=== PATIENT | male | born 1950 | race Caucasian/White ===

== ENCOUNTER 2019-09-22 10:49 | Emergency (ER) | payer MEDICARE, SELFPAY ==
--- NOTE | 2019-09-22 10:51 | ED.URI ---
HPI - URI/Sore Throat General Chief Complaint: Upper Respiratory Infection Stated Complaint: Sore Throat Time Seen by Provider: 09/22/19 10:51 Source: patient and RN notes reviewed History of Present Illness HPI Narrative: Patient is a 69-year-old male that presents the urgent care with complaints of postnasal drainage, sore throat, runny nose, productive cough. Patient states that it started 3 days ago and he wants to make sure he does not have strep or a sinus infection . Patient denies any known fever, shortness of breath. States that he did see his PCP and was denied an antibiotic at that time and told to take Tylenol. Patient has not taken anything [id number] for his symptoms. No other acute complaints. No acute distress noted. Patient aware of the plan of care. Related Data Home Medications Medication Instructions Recorded Confirmed atorvastatin 20 mg PO HS 09/22/19 09/22/19 lisinopril 10 mg PO DAILY 09/22/19 09/22/19 metformin 1,000 mg PO BID 09/22/19 09/22/19 prednisone 5 mg PO EVERY OTHER DAY 09/22/19 09/22/19 Allergies Allergy/AdvReac Type Severity Reaction Status Date / Time levofloxacin [From Levaquin] Allergy Blister Verified 09/22/19 11:11 Review of Systems Review of Systems: Narrative: CONSTITUTIONAL: Denies fever, chills, or sweats. EYES: Denies visual changes, redness, or discharge. ENT: Reports of runny nose, postnasal drainage and sore throat CARDIOVASCULAR: Denies chest pain, palpitations, or edema. RESPIRATORY: Reports of mild productive cough without dyspnea or wheezing GASTROINTESTINAL: Denies abdominal pain, nausea, vomiting, or diarrhea. GENITOURINARY: Denies dysuria or hematuria. SKIN: Denies rash or itching. MUSCULOSKELETAL: Denies back pain, joint pain, or myalgia. NEUROLOGIC: Denies headache, numbness, or weakness. All other systems reviewed are negative, except as documented in HPI. PMFSH Comments At the time of my signature, I reviewed and agree with the nursing past medical, surgical, social, and family history. There is no relevant family history pertinent to the patient complaint. Exam Narrative: Exam Narrative: GENERAL: This is a well-nourished, well-developed patient, in no apparent distress. HEAD: normocephalic, atraumatic. EYES: PERRL. Sclera clear/white. Vision is grossly intact. EARS: External ears normal, auditory canals clear and without drainage, TMs normal without perforation. Hearing grossly intact. NOSE: External nose normal with no obvious nasal discharge, nares without redness, clear rhinorrhea. THROAT: Mucous membranes moist, posterior pharynx clear. Mild postnasal drainage NECK: Neck supple CARDIOVASCULAR: Regular rate and rhythm without murmurs, gallops, or rubs. RESPIRATORY: Slightly diminished throughout with slight expiratory crackles?normal considering past medical history of sarcoid SKIN: warm, intact with no suspicious lesions or rash, good texture and turgor. NEURO: awake, alert, and oriented to person, place and time. There were no obvious focal neurologic abnormalities. EXTREMITIES: No clubbing, cyanosis, or edema. Course Vital Signs Vital signs: Vital Signs Temperature 98.7 F 09/22/19 11:05 Pulse Rate 108 H 09/22/19 11:05 Respiratory Rate 16 09/22/19 11:05 Blood Pressure 143/74 H 09/22/19 11:05 Pulse Oximetry 97 09/22/19 11:05 Temperature 98.7 F 09/22/19 11:05 Pulse Rate 108 H 09/22/19 11:05 Respiratory Rate 16 09/22/19 11:05 Blood Pressure 143/74 H 09/22/19 11:05 Pulse Oximetry 97 09/22/19 11:05 Reviewed?patient is informed that they may have pre-hypertension or hypertension based on a blood pressure reading in the department. I recommend the patient call the primary care provider listed on their discharge instructions or a physician of their choice this week to arrange follow-up for further evaluation of possible pre-hypertension or hypertension. MDM - URI/Sore Throat MDM Narrative Medical decision making
[2019-09-22 11:05] VITALS: BP 143/74; PULSE 108; RESP 16; TEMP 37.1; O2SAT 97
== END 2019-09-22 11:31 | disposition home or self-care (01) ==
PROVIDERS: Emergency Provider Nurse Practitioner Family; PCP Internal Medicine
DX: J32.9 Chronic sinusitis, unspecified (principal); E78.00 Pure hypercholesterolemia, unspecified; I10 Essential (primary) hypertension; J45.909 Unspecified asthma, uncomplicated; E11.9 Type 2 diabetes mellitus without complications; Z85.820 Personal history of malignant melanoma of skin
CPT/HCPCS: 87081; 87880; 99213; G0463